=== PATIENT | male | born 1990 | race Caucasian/White ===

== ENCOUNTER 2025-06-21 21:41 | Emergency (ER) | payer MEDICAID ==
[~2025-06-21] VITALS: Ht 180.3 cm; Wt 88.9 kg
[2025-06-21] MEDS ORDERED: MORPHINE SULFATE INJ 4 MG/ML DISP.SYRIN ONE (22:12)
[2025-06-21] MEDS ORDERED: ONDANSETRON HCL/PF 4 MG/2 ML VIAL ONE (22:12)
[2025-06-21] MEDS: ONDANSETRON HCL/PF 4 MG/2 ML VIAL IVP ONE (22:13)
[2025-06-21] MEDS: IV NS 0.9% 1,000 ML BAG IV ONE (22:13)
[2025-06-21] MEDS: MORPHINE SULFATE INJ 2 MG/ML DISP.SYRIN IV ONE (22:13)
[2025-06-21 22:15] LABS: PLATELET COUNT (AUTO) 254 K/uL (150-450); RED BLOOD CELL COUNT(AUTO) 5.10 MIL/uL (4.5-6.0); RED CELL DISTRIBUTION WIDTH 14.4 % (11.5-15.0); WHITE BLOOD COUNT (AUTO) 10.8 K/uL (4.3-11.0)
[2025-06-21 22:26] LABS: CREATININE 0.9 mg/dL (0.6-1.3); UREA NITROGEN, BLOOD 12.0 mg/dL (7-18)
[2025-06-21 22:27] LABS: CALCIUM, SERUM 9.6 mg/dL (8.5-10.1); SODIUM SERUM 141.0 mmol/L (136-145)
[2025-06-22 00:14] VITALS: BP 134/86; TEMP 98.2; O2SAT 100
== END 2025-06-22 00:14 | disposition home or self-care (01) ==
LOC: ER 21:54
DX: R51.9 Headache, unspecified (principal); Z86.018 Personal history of other benign neoplasm
CPT/HCPCS: 99285; 96374; 70450; 96361; 96375; 85025; 80048; 36415; J2270; J2405; J7030

== ENCOUNTER 2025-08-18 16:51 | Emergency (ER) | payer MEDICAID ==
[~2025-08-18] VITALS: Ht 177.8 cm; Wt 95.3 kg
[2025-08-18 16:58] VITALS: TEMP 98.1
[2025-08-18] MEDS ORDERED: PROCHLORPERAZINE EDISYLATE 10 MG/2 ML VIAL ONE (17:28)
[2025-08-18] MEDS ORDERED: KETOROLAC TROMETHAMINE INJ 30 MG/ML VIAL ONE (17:28)
[2025-08-18 17:33] LABS: PLATELET COUNT (AUTO) 230 K/uL (150-450); RED BLOOD CELL COUNT(AUTO) 4.63 MIL/uL (4.5-6.0); RED CELL DISTRIBUTION WIDTH 14.3 % (11.5-15.0); WHITE BLOOD COUNT (AUTO) 9.0 K/uL (4.3-11.0)
[2025-08-18] MEDS: IV NS 0.9% 1,000 ML BAG IV ONE (17:35)
[2025-08-18] MEDS: KETOROLAC TROMETHAMINE INJ 30 MG/ML VIAL IV ONE (17:36)
[2025-08-18] MEDS: PROCHLORPERAZINE EDISYLATE 10 MG/2 ML VIAL IM/IV ONE (17:40)
[2025-08-18 17:50] LABS: CALCIUM, SERUM 9.7 mg/dL (8.5-10.1); CREATININE 1.0 mg/dL (0.6-1.3); SODIUM SERUM 141.0 mmol/L (136-145); UREA NITROGEN, BLOOD 10.0 mg/dL (7-18)
[2025-08-18] MEDS ORDERED: IBUP-1953 PO (18:19)
[2025-08-18 19:18] VITALS: BP 125/78; O2SAT 98
== END 2025-08-18 18:33 | disposition home or self-care (01) ==
LOC: ER 16:54
DX: R51.9 Headache, unspecified (principal)
CPT/HCPCS: 99284; 96374; 96375; 96361; 85025; 80048; 36415; J1885; J0780; J1200; J7030